=== PATIENT | male | born 1965 | race Caucasian/White ===

== ENCOUNTER 2024-03-13 21:01 | Emergency (ER) | payer BC, SELFPAY ==
[2024-03-13] MEDS ORDERED: Lidocaine 1% w/Epinephrine 1:100K 20 ML VIAL ONE (21:31)
[2024-03-13] MEDS ORDERED: CEFAZOLIN 2 GM VIAL ONE (22:26)
[2024-03-13] MEDS ORDERED: Sterile Water 10 ML ONE (22:27)
== END 2024-03-13 23:04 | disposition home or self-care (01) ==
LOC: BURERS 21:01 → EDBD 21:01 → BURERS 23:04
DX: S41.112A Laceration without foreign body of left upper arm, initial encounter (principal); E03.9 Hypothyroidism, unspecified; Z79.890 Hormone replacement therapy; V58.3XXA Unspecified occupant of pick-up truck or van injured in noncollision transport accident in nontraffic accident, initial encounter; Y93.89 Activity, other specified
CPT/HCPCS: 12034; 96372